=== PATIENT | female | born 1935 | race Hispanic/Latino ===

== ENCOUNTER 2018-04-28 17:38 | Emergency (ER) | payer MEDICARE ==
[2018-04-28 17:38] VITALS: BMI 25.0
[2018-04-28 18:42] VITALS: TEMP 98.4
--- NOTE | 2018-04-28 19:19 | ED PDOC ---
Arrival/HPI - History of Present Illness Narrative History of Present Illness (Text): 04/28/18 19:16 82F with Past medical history of R ear deafness, CABG, presents to the Emergency department after trip[ping and missing a step, rolling her Left ankle. Pt denies any inciting events before the fall. 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 - Hematological/Oncological Hx Blood Transfusions: No Hx Blood Transfusion Reaction: No - Musculoskeletal/Rheumatological Hx Musculoskeletal Disorders: Yes - Psychiatric Hx Emotional Abuse: No Hx Physical Abuse: No Hx Substance Use: No - Anesthesia Hx Anesthesia Reactions: No Hx Malignant Hyperthermia: No - Suicidal Assessment Feels Threatened In Home Enviroment: No <Onel Luevano - Last Filed: 04/28/18 19:50> Family/Social History Family/Social History: Unknown Family HX Smoking Status: Never Smoked Hx Alcohol Use: No Hx Substance Use: No Hx Substance Use Treatment: No <Onel Luevano - Last Filed: 04/28/18 19:50> Allergies/Home Meds <Onel Luevano - Last Filed: 04/28/18 19:50> <Fransisco Baez - Last Filed: 04/28/18 20:39> Allergies/Adverse Reactions: Allergies Penicillins Allergy (Verified 04/28/18 18:43) RASH Home Medications: Home Meds Medication Instructions Recorded Confirmed Atorvastatin [Lipitor] 20 mg PO HS 10/07/13 03/06/15 Losartan [Cozaar] 25 mg PO DAILY 10/07/13 03/06/15 Pantoprazole Sodium [Protonix] 40 mg PO DAILY 10/07/13 03/05/15 RX: Gabapentin 100 mg PO HS 10/07/13 03/06/15 RX: Primidone 150 mg PO HS 10/07/13 03/06/15 Ascorbic Acid/Bioflavonoid 1 tab PO DAILY 03/05/15 03/06/15 [Vitamin C] Biotin [Nature's Blend Biotin] 1 tab PO DAILY 03/05/15 03/06/15 Coenzyme Q10 [Co Q-10] 1 tab PO DAILY 03/05/15 03/06/15 Cyanocobalamin [Vitamin B12] 1 tab PO DAILY 03/05/15 03/06/15 Grape Seed Extract [Grape Seed] 1 cap PO DAILY 03/05/15 03/06/15 Kelp [Kelp Tablets] 1 tab PO DAILY 03/05/15 03/06/15 Meclizine HCl [Meclizine] 25 mg PO PRN PRN 03/05/15 03/06/15 Mirabegron [Myrbetriq] 1 tab PO DAILY 03/05/15 03/06/15 Multivitamin4 [One-A-Day] 1 tab PO DAILY 03/05/15 03/06/15 Pyridoxine [Vitamin B6] 1 tab PO DAILY 03/05/15 03/06/15 RX: Aspirin 81 mg PO DAILY 03/05/15 03/06/15 RX: Evening [place] Oil 1 tab PO DAILY 03/05/15 03/06/15 Vitamin E Succinate [Vitamin E] 1 tab PO DAILY 03/05/15 03/06/15 Zinc, Chelated [Zinc] 1 tab PO DAILY 03/05/15 03/06/15 Physical Exam Vital Signs Temp Pulse Resp BP Pulse Ox 04/28/18 18:15 98.4 F 50 L 16 147/62 99 04/28/18 17:39 98.4 F 50 L 16 147/62 99 <Onel Luevano - Last Filed: 04/28/18 19:50> Vital Signs Temp Pulse Resp BP Pulse Ox 04/28/18 18:15 98.4 F 50 L 16 147/62 99 04/28/18 17:39 98.4 F 50 L 16 147/62 99 <Fransisco Baez - Last Filed: 04/28/18 20:39> Medical Decision Making - RAD Interpretation Radiology Orders: 04/28/18 18:44 ANKLE LEFT 3 VIEWS ROUTINE [RAD] Stat <Onel Luevano - Last Filed: 04/28/18 19:50> ED Course and Treatment: 04/28/18 20:38 i have personally seen and examined the patient. swelling and very mild eccythmosis seen at the left lateral malleolus. no foot tenderness, no medial pain. patient splinted with air ankle splint, crutches, referred to ortho. - RAD Interpretation Radiology Orders: 04/28/18 18:44 ANKLE LEFT 3 VIEWS ROUTINE [RAD] Stat <Fransisco Baez - Last Filed: 04/28/18 20:39> Disposition/Present on Arrival - Present on Arrival Any Indicators Present on Arrival: No History of DVT/PE: No History of Uncontrolled Diabetes: No Urinary Catheter: No History of Decub. Ulcer: No History Surgical Site Infection Following: None - Disposition Have Diagnosis and Disposition been Completed?: Yes Disposition Time: 19:50 <Onel Luevano - Last Filed: 04/28/18 19:50> <Fransisco Baez - Last Filed: 04/28/18 20:39> - Disposition Diagnosis: Left ankle injury Disposition: HOME/ ROUTINE Condition: GOOD Additional Instructions: ILDEFONSO LEVI, thank you for letting us take care of you today. Your provider was Fransisco Baez MD and you were treated for FELL. The emergency medical care you received today was directed at your acute symptoms. If you were prescribed any medication, please fill it and take as directed. It may take several days for your symptoms to resolve. Return to the Emergency Department if your symptoms worsen, do not improve, or if you have any other problems. Please contact your doctor or call one of the physicians/clinics you have been referred to that are listed on the Patient Visit Information form that is included in your discharge packet. Bring any paperwork you were given at discharge with you along with any medications you are taking to your follow up visit. Our treatment cannot replace ongoing medical care by a primary care provider outside of the emergency department. Thank you for allowing the [facility] team to be part of your care today. If you had an X-Ray or CT scan: A Radiologist will review the ED reading if any change in treatment is needed we will contact you. If you had a blood, urine, or wound culture: It will take several days for the results, if any change in treatment is needed we will contact you. If you had an STI test: It will take 48 hours for the results. Please call after 1 week if you have not heard back. Referrals: Venkata Diego MD [Primary Care Provider] - Follow up with primary Forms: [employer] ([place]ian)
[2018-04-28 20:57] VITALS: BP 145/75; PULSE 61; RESP 18; O2SAT 100
--- NOTE | 2018-04-29 10:21 | RAD ---
Date of service: 04/28/2018 PROCEDURE: Left Ankle Radiographs. HISTORY: injury, pain COMPARISON: None available. FINDINGS: BONES: No visible fractures. JOINTS: Normal. No osteoarthritis. Ankle mortise maintained. Talar dome intact SOFT TISSUES: Profound soft tissue swelling laterally and to lesser extent anteriorly. OTHER FINDINGS: Preserved ankle mortise IMPRESSION: Soft tissue swelling without acute articular or osseous abnormality.
== END 2018-04-28 20:15 | disposition home or self-care (01) ==
LOC: ED 17:38
DX: S99.912A Unspecified injury of left ankle, initial encounter (principal); W01.0XXA Fall on same level from slipping, tripping and stumbling without subsequent striking against object, initial encounter

== ENCOUNTER 2018-08-03 12:45 | Outpatient (CLI) | payer MEDICARE | END 2018-08-03 12:46 | disposition home or self-care (01) | LOC: RAD 12:45 ==